=== PATIENT | male | born 1975 | race Caucasian/White ===

== ENCOUNTER 2016-08-13 12:43 | Day surgery (SDC) | payer OTHER, BC ==
[~2016-08-13] VITALS: Ht 185.4 cm; Wt 85.9 kg
[~2016-08-13 12:43] MED LIST: MELO7.5T4 PO; NAPR220T95 PO; PRIL20CA9 PO; TRAM50TA PO
[2016-08-13] MEDS ORDERED: SODIUM CHLORID 0.9% 500 ML IV SCH (13:30)
[2016-08-13] MEDS ORDERED: POVIDONE IODINE 7.5% SCRUB 118 ML BOTTLE TOP SCH (13:30)
[2016-08-13] MEDS ORDERED: LACTATED RINGER'S 1000 ML IV SCH (13:30)
[2016-08-13] MEDS ORDERED: CHLORHEXIDINE GLUCONATE 2 % 1 PACK (2 CLOTHS) TOP SCH (13:30)
[2016-08-13] MEDS ORDERED: CHLORHEXIDINE GLUCONATE 4% SOLN 120 ML BTL TOP SCH (13:30)
[2016-08-13] MEDS ORDERED: METOPROLOL TARTRATE 25 MG TAB PO PRN (13:30)
[2016-08-13] MEDS ORDERED: INSULIN HUMAN REGULAR 1,000 UNITS/10 ML VIAL SQ PRN (13:30)
[2016-08-13] MEDS ORDERED: POVIDONE IODINE 5% (ANTISEPSIS KIT) 4 APPLICATIONS EACH NARE SCH (13:30)
[2016-08-13] MEDS ORDERED: ceFAZolin 2 GM PREMIX 50 ML IV SCH (13:30)
[2016-08-13] MEDS ORDERED: oxyCODONE/ACETAMINOPHEN 5 MG/325 MG TAB PO PRN ×2 (13:45)
[2016-08-13] MEDS ORDERED: ONDANSETRON HCL 4 MG/2 ML VIAL IVP PRN (13:45)
[2016-08-13] MEDS ORDERED: MORPHINE SULFATE 4 MG/ML INJ IV PUSH PRN (13:45)
[2016-08-13] MEDS ORDERED: NALOXONE HCL 0.4 MG/ML AMP IV PRN (13:45)
[2016-08-13] MEDS ORDERED: diphenhydrAMINE HCL 25 MG CAP PO PRN (13:45)
[2016-08-13] MEDS ORDERED: SODIUM CHLORIDE 0.9% FLUSH 5 ML FLUSH IVF PRN (13:45)
[2016-08-13] MEDS ORDERED: PERC5TAB12 PO (13:46)
[2016-08-13] MEDS ORDERED: PROPOFOL 200 MG/20 ML AMP IV ONE (14:29)
[2016-08-13] MEDS ORDERED: ONDANSETRON HCL 4 MG/2 ML VIAL IV PUSH ONE (14:29)
[2016-08-13 14:33] VITALS: BP 103/83; PULSE 72; RESP 20; TEMP 98.2; O2SAT 98
[2016-08-13] MEDS ORDERED: DEXT 5%-NACL 0.45% 1000 ML INJ 1,000 ML IV SCH (15:00)
[2016-08-13] MEDS ORDERED: LIDOCAINE HCL 2% 50 ML VIAL ONE (16:26)
[2016-08-13] MEDS ORDERED: DEXAMETHASONE SOD PHOS 4 MG/ML VIAL ONE (17:09)
[2016-08-13] MEDS ORDERED: MIDAZOLAM HCL 2 MG/2 ML VIAL ONE (17:09)
[2016-08-13 18:30] VITALS: PULSE 55; RESP 20; O2SAT 98
[2016-08-13] MEDS ORDERED: ONDANSETRON HCL 4 MG/2 ML VIAL IV PUSH PRN (18:30)
[2016-08-13] MEDS ORDERED: fentaNYL CITRATE 250 MCG/5 ML AMP ONE (18:34)
[2016-08-13 18:42] VITALS: BP 129/82
[2016-08-13] MEDS ORDERED: *morphine SULFATE 8 MG/ML PERIprocedure ONLY ONE (18:45)
--- NOTE | 2016-08-13 19:33 | RADRPT ---
EXAM DATE/TIME: 08/13/2016 18:06 [place] COMPARISON: No previous studies available for comparison. INDICATIONS : ORIF right 5th metatarsal. MEDICAL HISTORY : None. SURGICAL HISTORY : None. ENCOUNTER: Initial ACUITY: 1 day PAIN SCORE: Non-responsive. LOCATION: Right Foot FINDINGS: Surgical pin traverses the fifth metatarsal bone and there is gross anatomical alignment. CONCLUSION: Intac immediate postsurgical change. Fernando Raya MD on August 13, 2016 at 19:31 Board Certified Radiologist. This report was verified electronically.
[2016-08-13] MEDS ORDERED: SODIUM CHLORIDE 0.9% FLUSH 5 ML FLUSH IVF SCH (21:00)
--- NOTE | 2016-08-17 11:18 | MP ---
cc: TK CONNOLLY DATE OF SURGERY: 08/13/2016 PREOPERATIVE DIAGNOSIS Right fifth metatarsal fracture. POSTOPERATIVE DIAGNOSIS Right fifth metatarsal fracture. PROCEDURE Open reduction, internal fixation right fifth metatarsal fracture. SURGEON Dr. Tk Connolly. M[employer] S[employer] LEASING CONSULTANT BLAISE Peña ANESTHESIA General. ESTIMATED BLOOD LOSS 50 ccs. TOURNIQUET TIME Zero minutes. COMPLICATIONS None. IMPLANTS USED Arthrex. JUSTIFICATION This gentleman sustained a traumatic injury to his right foot at work and sustained a displaced fracture of the right fifth metatarsal base metaphyseal, diaphyseal junction. He has had persistent symptoms of pain and swelling in regards to his injury. He was evaluated by the undersigned in the [facility]. The patient was counseled as to the risks, benefits and alternatives to the above-named proposed surgical procedure. He did wish to proceed with surgery. PROCEDURE IN DETAIL A written consent was obtained. The patient was identified by name, taken to the operating room and placed supine on the operating table. General anesthesia was administered as well as 2 grams of IV Ancef. The right lower extremity was prepped and draped using isopropyl alcohol, Hibiclens solution and Chloraprep solution. After timeout was performed a longitudinal incision was made over the lateral aspect of the right fifth metatarsal base. An open reduction was performed. Subsequently, a K-wire was then drilled from the fifth metatarsal base into the intramedullary canal transversing the fracture and maintaining preliminary internal fixation after appropriate reduction of the fracture. Subsequently, a cannulated 3.5 mm drill bit was drilled over the wire. The wire was removed and subsequently a Arthrex partially threaded 4.5 mm screw was inserted into the fifth metatarsal. There was excellent purchase and fixation and the screw maintained fracture reduction. Fluoroscopic imaging was used in multiple planes to confirm hardware placement, fracture reduction. The surgical wound was thoroughly irrigated with sterile saline solution and the incision was closed 3-0 Prolene suture. Sterile dressings were applied. The patient was placed in a well-padded soft bundle dressing. He tolerated the procedure well with no intraoperative complications noted. Physician Gladys Peña Certified was present during the entire procedure to include patient positioning, the procedure itself. The medical necessity of physician campaign assistant was indicated in this case due to the complexity of the procedure. He assisted with appropriate fracture reduction to include both achieving and maintaining reduction as well as implantation of the internal fixation device. MD CAMERON Lane/[place] /8:17 AM /10:53 AM
== END 2016-08-13 18:58 | disposition home or self-care (01) ==
LOC: HSDC 12:43
PROVIDERS: ATTEND Orthopaedic Surgery Sports Medicine
DX: S92.351A Displaced fracture of fifth metatarsal bone, right foot, initial encounter for closed fracture (principal)
CPT/HCPCS: 01480; 28485; 73620; 76000; 86850; 86900; 86901; C1713; J0690; J1100; J2250; J2270; J2405; J3010